=== PATIENT | female | born 1950 | race Caucasian/White ===

== ENCOUNTER → 2022-06-03 14:24 | Outpatient (BNVA) | payer MEDICARE, MEDICAID, SELFPAY | PROVIDERS: PCP Obstetrics & Gynecology; Visit Provider Internal Medicine | DX: R76.8 Other specified abnormal immunological findings in serum (principal); R74.01 Elevation of levels of liver transaminase levels; L40.9 Psoriasis, unspecified; M46.06 Spinal enthesopathy, lumbar region; M41.86 Other forms of scoliosis, lumbar region | CPT/HCPCS: 36415; 72100; 72202; 73120; 80053; 81001; 82024; 82533; 82550; 83516; 83690; 84100; 84439; 84443; 85025; 85651; 86140; 86160; 86162; 86200; 86235; 86255; 86376; 86480; 86704; 86803; 87340; 99204 ==

== ENCOUNTER → 2022-09-02 10:58 | Outpatient (BNVA) | payer MEDICARE, SELFPAY | PROVIDERS: PCP Obstetrics & Gynecology; Visit Provider Internal Medicine | DX: R76.8 Other specified abnormal immunological findings in serum (principal); M25.9 Joint disorder, unspecified; R74.01 Elevation of levels of liver transaminase levels; R25.1 Tremor, unspecified; M48.9 Spondylopathy, unspecified; Z82.0 Family history of epilepsy and other diseases of the nervous system | CPT/HCPCS: 99214 ==